=== PATIENT | female | born 1995 | race Caucasian/White ===

== ENCOUNTER 2016-12-09 09:16 | Emergency (ER) | payer OTHER ==
[~2016-12-09 09:16] MED LIST: ANT12.5 PO; METOPROLOL SUCC50 M2 PO
[2016-12-09 11:10] VITALS: BP 134/80
== END 2016-12-09 11:10 | disposition home or self-care (01) ==
LOC: ED 09:16
DX: O26.891 Other specified pregnancy related conditions, first trimester (principal); R30.0 Dysuria; R10.32 Left lower quadrant pain; Z3A.00 Weeks of gestation of pregnancy not specified

== ENCOUNTER 2016-12-23 20:10 | Emergency (ER) | payer OTHER ==
[2016-12-23 21:33] LABS: UA SPECIFIC GRAVITY <=1.005 (1.005-1.035); microscopic required? YES; urine erythrocyte 2+ (NEGATIVE)
[2016-12-23 21:41] LABS: BASOPHIL % 0.5 % (0-2); PLATELET COUNT 364 x10^3mcL (130-400); RED CELL DISTRIBUTION WIDTH 13.8 % (11.5-14.5)
[2016-12-23 23:21] VITALS: BP 135/80
== END 2016-12-23 23:21 | disposition home or self-care (01) ==
LOC: ED 20:10
PROVIDERS: Emergency Medicine
DX: O20.0 Threatened abortion (principal); Z3A.01 Less than 8 weeks gestation of pregnancy; Z79.899 Other long term (current) drug therapy
CPT/HCPCS: 36415